=== PATIENT | female | born 1985 | race African-American/Black ===

== ENCOUNTER 2019-10-07 07:47 | Emergency (ER) | payer BC, OTHER ==
[~2019-10-07] VITALS: Ht 157.5 cm; Wt 124.0 kg
[2019-10-07] MEDS ORDERED: HYDROCODONE/ACETAMINOPHEN 5/325MG TABLET PO STA (08:28)
[2019-10-07 10:22] VITALS: BP 127/74
== END 2019-10-07 10:26 | disposition home or self-care (01) ==
LOC: ER 07:47
DX: S82.141A Displaced bicondylar fracture of right tibia, initial encounter for closed fracture (principal); V49.49XA Driver injured in collision with other motor vehicles in traffic accident, initial encounter; Y93.89 Activity, other specified; Y92.488 Other paved roadways as the place of occurrence of the external cause
CPT/HCPCS: 73560; 73590; 99284